=== PATIENT | female | born 1955 | race Caucasian/White ===

== ENCOUNTER 2020-07-17 19:34 | Emergency (ER) | payer MEDICARE, OTHER ==
[~2020-07-17] VITALS: Ht 170.2 cm; Wt 55.4 kg
[~2020-07-17 19:34] MED LIST: LEVO50TA8 PO; VALA10002 PO
[2020-07-17 19:36] VITALS: BP 154/90
[2020-07-17] MEDS ORDERED: TETanus/Pertussis (Acell)/Diphther VAC/PF (Tdap-Adult) 0.5ml syringe IMVAC ONE (20:40)
[2020-07-17] MEDS ORDERED: LIDOcaine 1% W/epiNEPHrine 1:200,000 10ml vial IJ ONE (20:40)
[2020-07-17] MEDS ORDERED: LIDOcaine 1% w/epiNEPHrine 1:200,000 30ml vial IJ ONE (21:05)
--- NOTE | 2020-07-17 21:21 | NUR ---
relieving RN for break, pt is resting quietly on gurney,
== END 2020-07-17 22:35 | disposition home or self-care (01) ==
LOC: ER 19:34
DX: S61.211A Laceration without foreign body of left index finger without damage to nail, initial encounter (principal); Z72.89 Other problems related to lifestyle; Z79.899 Other long term (current) drug therapy; W45.8XXA Other foreign body or object entering through skin, initial encounter; Y93.89 Activity, other specified; Y92.89 Other specified places as the place of occurrence of the external cause; Y99.8 Other external cause status
CPT/HCPCS: 12001; 99282

== ENCOUNTER 2022-04-16 05:01 | Emergency (ER) | payer MEDICARE, OTHER ==
[~2022-04-16] VITALS: Ht 170.2 cm; Wt 63.6 kg
[2022-04-16 05:04] VITALS: BP 125/74
[2022-04-16] MEDS ORDERED: LIDOcaine 1% 30ml preserv. free vial IJ STA (07:28)
== END 2022-04-16 09:00 | disposition home or self-care (01) ==
LOC: ER 05:02
DX: S62.616A Displaced fracture of proximal phalanx of right little finger, initial encounter for closed fracture (principal); I10 Essential (primary) hypertension; E78.00 Pure hypercholesterolemia, unspecified; Z72.89 Other problems related to lifestyle; Z79.899 Other long term (current) drug therapy; W18.39XA Other fall on same level, initial encounter; Y93.89 Activity, other specified; Y92.89 Other specified places as the place of occurrence of the external cause; Y99.8 Other external cause status
CPT/HCPCS: 26725; 73140; 99284

== ENCOUNTER 2023-05-11 20:22 | Emergency (ER) | payer MEDICARE, OTHER ==
[~2023-05-11] VITALS: Ht 167.6 cm; Wt 65.9 kg
[2023-05-11 20:48] VITALS: BP 149/94; PULSE 73; TEMP 96.3; O2SAT 98
[2023-05-11] MEDS ORDERED: HYDROcodone/acetaminophen 5mg/325mg tablet PO ONE (20:55)
[2023-05-11 20:58] VITALS: RESP 18
[2023-05-11] MEDS ORDERED: ibuprofen 200mg tablet PO ONE (23:15)
== END 2023-05-12 00:21 | disposition home or self-care (01) ==
LOC: ER 20:24
DX: S52.121A Displaced fracture of head of right radius, initial encounter for closed fracture (principal); S52.611A Displaced fracture of right ulna styloid process, initial encounter for closed fracture; I10 Essential (primary) hypertension; E78.00 Pure hypercholesterolemia, unspecified; Z79.899 Other long term (current) drug therapy; X58.XXXA Exposure to other specified factors, initial encounter; Y93.89 Activity, other specified; Y92.89 Other specified places as the place of occurrence of the external cause; Y99.8 Other external cause status
CPT/HCPCS: 29105; 73090; 73110; 99284